=== PATIENT | female | born 1940 | race Caucasian/White ===

== ENCOUNTER 2016-09-16 15:37 | Emergency (ER) | payer OTHER ==
[~2016-09-16] VITALS: Ht 160 cm; Wt 67.7 kg
[~2016-09-16 15:37] MED LIST: ASPI81TA21 PO; ATEN50TA8 PO; CARV12.5 PO; CHOL100010 PO; LEVO100T35 PO; NRV5 PO
[2016-09-16 15:39] VITALS: TEMP 36.4; Ht 160 cm; Wt 67.7 kg
--- NOTE | 2016-09-16 16:25 | DIAGNOSTIC IMAGING REPORT ---
RIGHT RIBS UNILATERAL WITH PA CHEST CLINICAL HISTORY: R rib injury s/p fall in shower Right trauma COMPARISON STUDY: None FINDINGS: Nondisplaced cortical fractures anterior right eighth ninth and 10th ribs. No evidence pneumothorax. IMPRESSION: Nondisplaced cortical fractures right eighth ninth and 10th ribs. Lungs are clear. Electronically signed by: Toro Sampson M.D. 09/16/2016 4:24 PM Dictated Date/Time: 09/16/2016 4:22 PM
[2016-09-16] MEDS ORDERED: CYAN100T PO (16:41)
[2016-09-16] MEDS ORDERED: VITATAB19 PO (16:53)
[2016-09-16] MEDS ORDERED: OXYC1TAB3 PO (16:55)
--- NOTE | 2016-09-16 16:58 | EMERGENCY ROOM VISIT NOTE ---
History First contact with patient: 15:47 Chief Complaint: FALL Stated Complaint: FELL IN TUB,RT RIB PAIN,GETTING WORSE History of Present Illness The patient is a 76 year old female who presents to the Emergency Room with her son with complaints of right rib pain. The patient reports that she leans over her sink to wash her hair. When she was doing so 3-4 days ago, she felt sharp pain in her right lower ribs. The patient reports that movement worsens her pain. She is actually able to breathe deeply without any significant discomfort. She denies any shortness of breath or abdominal pain. The patient rates her discomfort a 3 out of 10. Review of Systems 10 system review was performed with the patient and son, and was negative except for pertinent positives and negatives as indicated in history of present illness Past Medical/Surgical History Medical Problems: (1) Coronary artery disease (2) Essential hypertension (3) Hyperlipidemia (4) Hypothyroidism (5) Left ventricular hypertrophy (6) Osteoporosis (7) Pancreatic cyst (8) Pulmonary nodules (9) Right bundle branch block Surgical Problems: (1) Status post coronary artery bypass grafting (2) Status post-operative repair of hip fracture Family History No significant family history Social History Smoking Status: Never Smoker Alcohol Use: none Marital Status: Housing Status: lives alone Occupation Status: retired Current/Historical Medications Scheduled Amlodipine Besylate (Amlodipine Besylate), 10 MG PO QPM Aspirin Enteric Coated (Ecotrin Or Generic), 81 MG PO QAM Atenolol (Tenormin), 50 MG PO QPM Carvedilol (Coreg), 12.5 MG PO BID Cholecalciferol (Vitamin D), 1,000 INTER.UNIT PO DINNER Cyanocobalamin (Vitamin B-12), 100 MCG PO DAILY Levothyroxine Sodium (Levoxyl), 100 MCG PO QAM Vitamin A-Beta Carotene (Vitamin A), 1 TAB PO DAILY Scheduled PRN Oxycodone Ir (Roxicodone Ir), 1-2 TAB PO Q4H PRN for Pain Allergies Coded Allergies: Amoxicillin (Verified Allergy, Unknown, HIGH BLOOD PRESSURE, MUSCLE SPASMS IN LEGS, 05/20/15) Clavulanic Acid (Verified Allergy, Unknown, HIGH BLOOD PRESSURE, MUSCLE SPASMS IN LEGS, 05/20/15) BIBI Inhibitors (Verified Adverse Reaction, Mild, COUGH, 05/20/15) Statins (Verified Adverse Reaction, Unknown, UNKNOWN, 05/20/15) Physical Exam Vital Signs Date Time Temp Pulse Resp B/P Pulse Ox O2 Delivery O2 Flow Rate FiO2 09/16/16 17:05 55 16 140/85 95 09/16/16 15:39 36.4 58 20 155/87 93 Room Air Physical Exam CONSTITUTIONAL: Healthy and well nourished. Alert and oriented X 3 with positive affect. Patient does not appear in any significant distress or discomfort. HEENT: Normocephalic, atraumatic. Pupils equal, round and reactive. NECK: Full active range of motion without discomfort. RESPIRATORY: Clear to auscultation bilaterally with no wheezing, crackles, rhonchi or stridor. CARDIOVASCULAR: Regular rate and rhythm with no murmurs, rubs or gallops. GASTROINTESTINAL: Bowel sounds present in all quadrants. Soft and nontender to palpation. MUSCULOSKELETAL: Examination shows INTEGUMENTARY: No rash or other significant dermatologic conditions noted. NEUROLOGIC: Cranial nerves II-XII grossly intact. No focal neurologic deficits noted. Medical Decision & Procedures ER Provider Diagnostic Interpretation: My interpretation of right rib x-rays with a PA chest view shows no evidence for pneumothorax. There are fractures of the lateral eighth, ninth and 10th ribs. Radiologist report is as follows: RIGHT RIBS UNILATERAL WITH PA CHEST CLINICAL HISTORY: R rib injury s/p fall in shower Right trauma COMPARISON STUDY: None FINDINGS: Nondisplaced cortical fractures anterior right eighth ninth and 10th ribs. No evidence pneumothorax. IMPRESSION: Nondisplaced cortical fractures right eighth ninth and 10th ribs. Lungs are clear. ED Course Patient history and physical exam were performed. Nurse's notes were reviewed. As indicated in history of present illness, the son is interpreting for the patient, and they refuse interpretation services. The patient refused any analgesics. X-rays of the right ribs with a PA chest view shows fractures of the eighth, ninth and tenth ribs. The patient was dispensed an incentive spirometer, and instructions for its use. She was encouraged to intermittently apply ice to the ribs. She reports that the pain relief is not all that bad. She was encouraged to alternate ibuprofen and Tylenol for baseline pain relief. She was provided a written prescription for OxyIR if needed for worse/ breakthrough pain. If she does use the OxyIR, she was advised that it could make her drowsy and constipated. She was instructed to follow-up with her PCP in the next 3-5 days for recheck, returning to the emergency department for any developing shortness of breath, fever or productive cough. The patient was happy with plan of care, voiced understanding of all discharge instructions, and rated her pain a 3 out of 10 at the time of discharge. The patient was also seen and examined by Dr. Love, ED attending physician, who agrees with workup and plan of care. Medical Decision Impression Primary Impression: Multiple fractures of ribs of right side Departure Information Prescriptions Oxycodone Ir (Roxicodone Ir) 5 Mg Tab 1-2 TAB PO Q4H Y for Pain, #15 TAB For Initial Treatment Prov: Georges Michael PA 09/16/16 Referrals Avi Resendez M.D. (PCP) Patient Instructions My [facility] Problem Qualifiers Primary Impression: Multiple fractures of ribs of right side Encounter type: initial encounter Fracture type: closed Qualified Codes: S22.41XA - Multiple fractures of ribs, right side, initial encounter for closed fracture
[2016-09-16 17:05] VITALS: BP 140/85; PULSE 55; O2SAT 95
== END 2016-09-16 17:05 | disposition home or self-care (01) ==
LOC: C.EDB 15:38 → C.EDD 17:05
DX: S22.41XA Multiple fractures of ribs, right side, initial encounter for closed fracture (principal); W19.XXXA Unspecified fall, initial encounter; I10 Essential (primary) hypertension; E78.5 Hyperlipidemia, unspecified; I25.10 Atherosclerotic heart disease of native coronary artery without angina pectoris; E03.9 Hypothyroidism, unspecified; M81.0 Age-related osteoporosis without current pathological fracture; Z95.1 Presence of aortocoronary bypass graft; Z87.81 Personal history of (healed) traumatic fracture; Z79.82 Long term (current) use of aspirin; Z79.899 Other long term (current) drug therapy; Z88.1 Allergy status to other antibiotic agents; Z88.8 Allergy status to other drugs, medicaments and biological substances